=== PATIENT | female | born 1975 | race Caucasian/White ===

== ENCOUNTER 2018-11-10 13:04 | Outpatient (CLI) | payer OTHER ==
--- NOTE | 2018-11-10 14:00 | MMO ---
Bilateral MAMMO Bilat Diag [facility]. CLINICAL HISTORY: Patient is 43 years old and is seen for diagnostic exam. The patient has the following family history of breast cancer: maternal grandmother, malignant (generic). The patient has a history of melanoma at age 26. VIEWS: The views performed were: bilateral craniocaudal with tomosynthesis; bilateral mediolateral oblique with tomosynthesis; and bilateral mediolateral. FILMS COMPARED: The present examination has been compared to prior imaging studies performed at [facility] on 03/27/2014, 03/29/2014, 10/30/2015, 11/05/2015, 05/26/2017 and 11/10/2018. MAMMOGRAM FINDINGS: The breasts are heterogeneously dense, which could obscure a lesion on mammography. There are no suspicious masses, suspicious calcifications, or new areas of architectural distortion. IMPRESSION: THERE IS NO MAMMOGRAPHIC EVIDENCE OF MALIGNANCY. A ROUTINE FOLLOW-UP MAMMOGRAM IN 1 YEAR IS RECOMMENDED. THE RESULTS OF THIS EXAM WERE SENT TO THE PATIENT. ACR BI-RADS Category 1 - Negative MAMMOGRAPHY NOTE: 1. A negative mammogram report should not delay a biopsy if a dominant of clinically suspicious mass is present. 2. Approximately 10% to 15% of breast cancers are not detected by mammography. 3. Adenosis and dense breasts may obscure an underlying neoplasm.
--- NOTE | 2018-11-10 14:16 | ULT ---
LEFT BREAST SONOGRAM LIMITED: History: Left breast pain. FINDINGS: Limited sonographic evaluation of the superior aspect of the left breast in the region of pain shows scattered fibroglandular tissue. No solid or cystic masses. No suspicious shadowing. IMPRESSION: BIRADS category 2 - benign findings. Please see separate report regarding diagnostic mammography perf ormed on the same date. POS: [facility]
== END 2018-11-10 13:05 | disposition home or self-care (01) ==
LOC: BICMAMMO 13:04
PROVIDERS: ATTEND Family Medicine
DX: N63.20 Unspecified lump in the left breast, unspecified quadrant (principal); Z80.3 Family history of malignant neoplasm of breast; Z85.820 Personal history of malignant melanoma of skin
CPT/HCPCS: 77066; G0279

== ENCOUNTER 2023-02-16 11:48 | Outpatient (CLI) | payer OTHER | END 2023-02-16 11:49 | disposition home or self-care (01) | LOC: SCSMRI 11:48 | PROVIDERS: ATTEND Family Medicine | DX: M47.26 Other spondylosis with radiculopathy, lumbar region (principal); R51.9 Headache, unspecified; H53.9 Unspecified visual disturbance; R11.0 Nausea; R42 Dizziness and giddiness | CPT/HCPCS: 70553; 72148 ==

== ENCOUNTER 2024-07-18 10:51 | Outpatient (CLI) | payer OTHER | END 2024-07-18 10:52 | disposition home or self-care (01) | LOC: SCSRAD 10:51 | PROVIDERS: ATTEND Physician Assistant | DX: S99.921A Unspecified injury of right foot, initial encounter (principal); S99.911A Unspecified injury of right ankle, initial encounter ==